=== PATIENT | female | born 1940 | race Hispanic/Latino ===

== ENCOUNTER 2017-10-02 07:16 | Emergency (ER) | payer MEDICARE ==
[2017-10-02 07:19] VITALS: BMI 22.4
[2017-10-02 08:00] LABS: BASO % 0.2 % (0.0-2.0); EOS % 0.1 % (0.0-4.0); HEMOGLOBIN 11.7 g/dL (11.0-16.0); LYMPH # 0.4 K/uL (1.0-4.3); LYMPH % 9.1 % (20.0-40.0); MEAN CELL VOLUME 78.5 fL (81.0-99.0); MEAN CORPUSCULAR HEMOGLOBIN 24.6 pg (27.0-31.0); MEAN CORPUSCULAR HGB CONC 31.3 g/dL (33.0-37.0); MEAN PLATELET VOLUME 9.8 fL (7.2-11.7); MONO % 0.5 % (0.0-10.0); NEUT # 4.3 K/uL (1.8-7.0); NEUT % 90.1 % (50.0-75.0); NRBC % 0.3 % (0.0-2.0); PLATELET COUNT 178 K/uL (130-400); RBC 4.75 Mil/uL (3.80-5.20); RED CELL DISTRIBUTION WIDTH 17.5 % (11.5-14.5); WHITE BLOOD COUNT 4.8 K/uL (4.8-10.8)
[2017-10-02 08:09] LABS: INR 1.7; PROTHROMBIN TIME 18.9 SECONDS (9.7-12.2)
[2017-10-02 08:18] LABS: SQUAMOUS EPITHIAL 1 /hpf (0-5); URINE AMORPHOUS SEDIMENT OCC /ul (<OCC); URINE BACTERIA FEW (<OCC); URINE BILIRUBIN NEGATIVE (NEGATIVE); URINE BLOOD NEGATIVE (NEGATIVE); URINE CLARITY Hazy (Clear); URINE COLOR Amber (YELLOW); URINE GLUCOSE (UA) NORMAL (Normal); URINE LEUKOCYTE ESTERASE NEG Leu/uL (Negative); URINE NITRATE NEGATIVE (NEGATIVE); URINE PROTEIN 2+ mg/dL (NEGATIVE); URINE UROBILINOGEN NORMAL mg/dL (0.2-1.0)
[2017-10-02 08:19] LABS: VENOUS BLOOD GAS PCO2 54 mmHg (40-60); VENOUS BLOOD GAS PO2 47 mm/Hg (30-55); VENOUS BLOOD PH 6.96 (7.32-7.43)
[2017-10-02] MEDS ORDERED: SODIUM CHLORIDE 0.9% IV ONE (08:22)
[2017-10-02] MEDS ORDERED: Piperacillin/Tazobact 3.375 gm 100 ML IVPB STA (08:27)
[2017-10-02 08:48] LABS: ALB/GLOB RATIO 0.9 (1.0-2.1); CK-MB 9.85 ng/mL (0.0-3.38); TROPONIN I 0.207 ng/mL (0.00-0.120)
[2017-10-02] MEDS ORDERED: Sodium Bicarbonate (8.4%) 50 Meq Syringe IVP ONE (08:57)
[2017-10-02 09:11] LABS: ARTERIAL BLOOD GAS HCO3 6.2 mmol/L (21-28); ARTERIAL BLOOD GAS O2 SAT 100.6 % (95-98); ARTERIAL BLOOD GAS PCO2 27 mm/Hg (35-45); ARTERIAL BLOOD GAS PH 6.98 (7.35-7.45); ARTERIAL BLOOD GAS PO2 409 mm/Hg (80-100); ARTERIAL BLOOD GAS TCO2 7.2 mmol/L (22-28)
[2017-10-02] MEDS ORDERED: Piperacillin/Tazobact 3.375 gm 100 ML IVPB ONE ×2 (09:18→11:21)
[2017-10-02] MEDS ORDERED: Sodium Bicarbonate (8.4%) 50 Meq Syringe ONE ×2 (09:18→09:50)
[2017-10-02] MEDS ORDERED: Sodium Chloride 0.9% 2,000 ML ONE (09:18)
[2017-10-02] MEDS ORDERED: Sodium Chloride 0.9% 1,000 ML IV ONE ×2 (09:29→09:31)
[2017-10-02 09:41] LABS: ANISOCYTOSIS SLIGHT; BANDS 51 % (0-2); HYPOCHROMIC SLIGHT; LYMPHOCYTE 8 % (20-40); MONOCYTE 5 % (0-10); NEUTROPHIL 35 % (50-75); PLATELET ESTIMATE NORMAL (NORMAL); POIKILOCYTOSIS SLIGHT; REACTIVE LYMPHOCYTES 1 % (0-0); TOTAL CELLS COUNTED 100
[2017-10-02 09:42] LABS: BURR CELLS SLIGHT; LARGE PLATELETS PRESENT; OVALOCYTES SLIGHT; TEARDROP CELLS SLIGHT
--- NOTE | 2017-10-02 10:34 | RAD ---
HISTORY: AMS COMPARISON: None available. TECHNIQUE: Chest, one view. FINDINGS: LUNGS: Dense right middle and lower lobe and less consolidated left lower lobe patchy consolidations worrisome for pneumonia. Interstitial prominence may reflect infection or edema. Biapical pleural thickening. Hyperinflation may be seen in the setting of COPD. PLEURA: No significant pleural effusion identified. No definite pneumothorax . CARDIOVASCULAR: Cardiomegaly. Dense atherosclerotic calcifications of the aorta. OSSEOUS STRUCTURES: Osseous demineralization. Degenerative changes. VISUALIZED UPPER ABDOMEN: Unremarkable. OTHER FINDINGS: None. IMPRESSION: Dense right middle and lower lobe and less consolidated left lower lobe patchy consolidations worrisome for pneumonia. Interstitial prominence may reflect infection or edema. Biapical pleural thickening. Hyperinflation may be seen in the setting of COPD. Recommend follow-up to resolution.
--- NOTE | 2017-10-02 10:53 | C.PDOC ---
History Of Present Illness Pt was found lethargic in her bedroom. The room's condition is very poor according to EMS. EMS found pt to be hypoglycemic (FS 50) and was given D50 en route without response. Time Seen by Provider: 10/02/17 07:22 Chief Complaint (Nursing): Altered Mental Status History Per: EMS History/Exam Limitations: Clinical Condition Onset/Duration Of Symptoms: Unknown Onset Of Symptoms: Cannot Confirm Onset Current Symptoms Are (Timing): Still Present Usual Baseline: Unknown Exacerbating Factor(s): Unknown Severity: Severe Additional History Per: Prior Records Associated Symptoms: Weakness, Other (Lethargy) Past Medical History Reviewed: Historical Data, Nursing Documentation, Vital Signs Vital Signs: Last Vital Signs Temp 95.5 F L 10/02/17 10:04 Pulse 133 H 10/02/17 10:04 Resp 26 H 10/02/17 10:04 BP 146/80 10/02/17 10:04 Pulse Ox 100 10/02/17 10:04 - Medical History PMH: Asthma, HTN, Osteoporosis Family History: States: Unknown Family Hx - Social History Hx Alcohol Use: No (unknown) Hx Substance Use: No - Immunization History Hx Tetanus Toxoid Vaccination: No (unknown) Hx Influenza Vaccination: No (unknown) Hx Pneumococcal Vaccination: No (uknown) Review Of Systems Review Of Systems: ROS cannot be obtained secondary to pt's inabilty to answer questions. Physical Exam - Physical Exam Appears: Toxic, In Acute Distress, Other (Lethargic) Skin: Dry, Mottled Head: Atraumatic Oral Mucosa: Dry Neck: Normal ROM, Supple Cardiovascular: Rhythm Regular (tachycardia) Respiratory: Rhonchi, Other (tachypnea) Gastrointestinal/Abdominal: Soft, No Tenderness, No Distention Extremity: Normal ROM, No Pedal Edema Neurological/Psych: No Response To Commands Pain Response: Withdraws With Pain ED Course And Treatment - Laboratory Results Result Diagrams: 10/02/17 07:52 10/02/17 07:52 Lab Interpretation: Abnormal Interpretation Of Abnormal: Acidosis. Acute renal failure. Bandemia. ECG: Interpreted By Me, Viewed By Me ECG Rhythm: Nonspecific Changes Interpretation Of ECG: Indeterminate rhythm due to many artifacts. Tachycardia. Rate From EC O2 Sat by Pulse Oximetry: 100 (on BiPAP) - Radiology CXR: Viewed By Me, Read By Radiologist CXR Interpretation: Yes: Infiltrates (RLL pneumonia) Progress Note: Pt was placed on BiPAP and Bear hugger upon arrival with modest improvement. Progress - Interventions Interventions:: Observation, Intravenous fluid, Oxygen - Medications Administered Intravenous: Other (Abx., Sodium Bicarb.) - Data Reviewed Data Reviewed: Lab, Diagnostic imaging, EKG, Old records - Patient Status Patient status: Partially improved, Critical - Critical Care Citical Care: Excluding Proc Time Critical Care Time: 75 minutes - Continuity of Care Discussed patient case with:: ED Nurse, On-call PMD-pt unassigned Discussed pt. case with crm consultant/specialty: Pulmonary/Crit. Care - Patient Plan Patient Plan: Admission, ICU Disposition Discussed With : Chris Gonsales Comment: He accepted pt on his service. Doctor Will See Patient In The: Hospital - Disposition Disposition: HOSPITALIZED Disposition Time: 10:54 Condition: CRITICAL - Clinical Impression Clinical Impression: Lactic acidosis, Hypothermia, Dehydration, Pneumonia, Sepsis, ARF (acute renal failure)
--- NOTE | 2017-10-02 11:29 | CP.PCM.CON ---
<Alex Wright - Last Filed: 10/02/17 11:29> Past Patient History - Past Social History Smoking Status: Unknown If Ever Smoked - CARDIAC Hx Hypertension: Yes - PULMONARY Hx Asthma: Yes - MUSCULOSKELETAL/RHEUMATOLOGICAL Hx Osteoporosis: Yes - PSYCHIATRIC Hx Substance Use: No - SURGICAL HISTORY Hx Surgeries: (unobtainable) Meds Allergies/Adverse Reactions: Allergies Allergy/AdvReac Type Severity Reaction Status Date / Time Unobtainable Allergy Verified 10/02/17 07:17 - Medications Medications: Current Medications Albuterol/Ipratropium (Duoneb 3 Mg/0.5 Mg (3 Ml) Ud) 3 ml INH RQ6 RIK Sodium Chloride (Sodium Chloride 0.9%) 1,000 mls @ 75 mls/hr IV .[id number] RIK Piperacillin Sod/Tazobactam Sod (Zosyn 3.375 In Ns 100ml) 100 mls @ 200 mls/hr IVPB ONCE ONE Stop: 10/02/17 11:50 Vancomycin/Sodium Chloride (Vancomycin 1 Gm/Ns 200 Ml) 1 gm in 200 mls @ 133 mls/hr IVPB DAILY RIK Stop: 10/08/17 10:01 Sodium Bicarbonate 75 meq/ (Sodium Chloride) 1,075 mls @ 75 mls/hr IV .[id number] RIK Results - Vital Signs Recent Vital Signs: Last Vital Signs Temp 95.5 F L 10/02/17 10:04 Pulse 133 H 10/02/17 10:04 Resp 26 H 10/02/17 10:04 BP 146/80 10/02/17 10:04 Pulse Ox 100 10/02/17 11:00 - Labs Result Diagrams: 10/02/17 07:52 10/02/17 07:52 Labs: Laboratory Results - last 24 hr 10/02/17 10/02/17 10/02/17 07:30 07:52 07:52 WBC 4.8 RBC 4.75 Hgb 11.7 Hct 37.3 MCV 78.5 L MCH 24.6 L MCHC 31.3 L RDW 17.5 H Plt Count 178 MPV 9.8 Neut % (Auto) 90.1 H Lymph % (Auto) 9.1 L Mcdonough % (Auto) 0.5 Eos % (Auto) 0.1 Baso % (Auto) 0.2 Neut # (Auto) 4.3 Lymph # (Auto) 0.4 L Mcdonough # (Auto) 0.0 Eos # (Auto) 0.0 Baso # (Auto) 0.0 Neutrophils % (Manual) 35 L Band Neutrophils % 51 H* Lymphocytes % (Manual) 8 L Reactive Lymphs % 1 H Monocytes % (Manual) 5 Platelet Estimate Normal Large Platelets Present Hypochromasia (manual) Slight Poikilocytosis (manual Slight Anisocytosis (manual) Slight Tear Drop Cells Slight Ovalocytes Slight [place] Cells Slight PT INR APTT Puncture Site pCO2 pO2 HCO3 ABG pH ABG Total CO2 ABG O2 Saturation ABG Base Excess Marshall Test ABG Potassium VBG pH VBG pCO2 VBG HCO3 VBG Total CO2 VBG O2 Sat (Calc) VBG Base Excess VBG Potassium A-a O2 Difference Respiratory Index Glucose Lactate FiO2 Inspiratory BiPAP Expiratory BiPAP Crit Value Called To Crit Value Called By Crit Value Read Back Blood Gas Notified Time Sodium 130 L Potassium 5.2 Chloride 95 L Carbon Dioxide 9 L* Anion Gap 30 H BUN 62 H Creatinine 2.9 H Est GFR ( Amer) 19 Est GFR (Non-Af Amer) 16 POC Glucose (mg/dL) 138 H Random Glucose 168 H Calcium 9.0 Total Bilirubin 1.7 H AST 1030 H ALT 572 H Alkaline Phosphatase 45 Total Creatine Kinase 542 H CK-MB (Mass) 9.85 H Troponin I 0.2070 H* NT-Pro-B Natriuret Pep 23281 H Total Protein 6.5 Albumin 3.0 L Globulin 3.5 Albumin/Globulin Ratio 0.9 L Arterial Blood Potassium Venous Blood Potassium Urine Color Urine Clarity Urine pH Ur Specific [place] Urine Protein Urine Glucose (UA) Urine Ketones Urine Blood Urine Nitrate Urine Bilirubin Urine Urobilinogen Ur Leukocyte Esterase Urine WBC (Auto) Urine RBC (Auto) Ur Squamous Epith Cells Amorphous Sediment Urine Bacteria Hyaline Casts 10/02/17 10/02/17 10/02/17 07:52 07:52 08:10 WBC RBC Hgb Hct MCV MCH MCHC RDW Plt Count MPV Neut % (Auto) Lymph % (Auto) Mcdonough % (Auto) Eos % (Auto) Baso % (Auto) Neut # (Auto) Lymph # (Auto) Mcdonough # (Auto) Eos # (Auto) Baso # (Auto) Neutrophils % (Manual) Band Neutrophils % Lymphocytes % (Manual) Reactive Lymphs % Monocytes % (Manual) Platelet Estimate Large Platelets Hypochromasia (manual) Poikilocytosis (manual Anisocytosis (manual) Tear Drop Cells Ovalocytes [place] Cells PT 18.9 H INR 1.7 APTT 41 H Puncture Site pCO2 pO2 47 HCO3 ABG pH ABG Total CO2 ABG O2 Saturation ABG Base Excess Marshall Test ABG Potassium VBG pH 6.96 L* VBG pCO2 54 VBG HCO3 8.1 VBG Total CO2 13.8 L VBG O2 Sat (Calc) 66.0 H VBG Base Excess -20.0 L VBG Potassium 4.9 A-a O2 Difference Respiratory Index Glucose 168 H Lactate 13.6 H* FiO2 Inspiratory BiPAP Expiratory BiPAP Crit Value Called To Dr villarreal Crit Value Called By Tanvi bowman [facility] Crit Value Read Back Y Blood Gas Notified Time 820 Sodium 132.0 Potassium Chloride 98.0 Carbon Dioxide Anion Gap BUN Creatinine Est GFR ( Amer) Est GFR (Non-Af Amer) POC Glucose (mg/dL) Random Glucose Calcium Total Bilirubin AST ALT Alkaline Phosphatase Total Creatine Kinase CK-MB (Mass) Troponin I NT-Pro-B Natriuret Pep Total Protein Albumin Globulin Albumin/Globulin Ratio Arterial Blood Potassium Venous Blood Potassium 4.9 Urine Color [place] Urine Clarity Hazy Urine pH 5.0 Ur Specific [place] 1.023 Urine Protein 2+ H Urine Glucose (UA) Normal Urine Ketones Negative Urine Blood Negative Urine Nitrate Negative Urine Bilirubin Negative Urine Urobilinogen Normal Ur Leukocyte Esterase Neg Urine WBC (Auto) 3 Urine RBC (Auto) 2 Ur Squamous Epith Cells 1 Amorphous Sediment Occ H Urine Bacteria Few H Hyaline Casts 6-10 H 10/02/17 09:00 WBC RBC Hgb Hct MCV MCH MCHC RDW Plt Count MPV Neut % (Auto) Lymph % (Auto) Mcdonough % (Auto) Eos % (Auto) Baso % (Auto) Neut # (Auto) Lymph # (Auto) Mcdonough # (Auto) Eos # (Auto) Baso # (Auto) Neutrophils % (Manual) Band Neutrophils % Lymphocytes % (Manual) Reactive Lymphs % Monocytes % (Manual) Platelet Estimate Large Platelets Hypochromasia (manual) Poikilocytosis (manual Anisocytosis (manual) Tear Drop Cells Ovalocytes [place] Cells PT INR APTT Puncture Site Lf pCO2 27 L pO2 409 H HCO3 6.2 L* ABG pH 6.98 L* ABG Total CO2 7.2 L ABG O2 Saturation 100.6 H ABG Base Excess -24.1 L Marshall Test Na ABG Potassium 4.5 VBG pH VBG pCO2 VBG HCO3 VBG Total CO2 VBG O2 Sat (Calc) VBG Base Excess VBG Potassium A-a O2 Difference 270.0 Respiratory Index 0.7 Glucose 67 Lactate 12.9 H* FiO2 100.0 Inspiratory BiPAP 12 Expiratory BiPAP 6 Crit Value Called To Dr mccollum Crit Value Called By Jj bowman Crit Value Read Back Y Blood Gas Notified Time 910 Sodium 136.0 Potassium Chloride 108.0 H Carbon Dioxide Anion Gap BUN Creatinine Est GFR ( Amer) Est GFR (Non-Af Amer) POC Glucose (mg/dL) Random Glucose Calcium Total Bilirubin AST ALT Alkaline Phosphatase Total Creatine Kinase CK-MB (Mass) Troponin I NT-Pro-B Natriuret Pep Total Protein Albumin Globulin Albumin/Globulin Ratio Arterial Blood Potassium 4.5 Venous Blood Potassium Urine Color Urine Clarity Urine pH Ur Specific [place] Urine Protein Urine Glucose (UA) Urine Ketones Urine Blood Urine Nitrate Urine Bilirubin Urine Urobilinogen Ur Leukocyte Esterase Urine WBC (Auto) Urine RBC (Auto) Ur Squamous Epith Cells Amorphous Sediment Urine Bacteria Hyaline Casts <Gabino Pratt - Last Filed: 10/02/17 13:02> History of Present Illness - History of Present Illness History of Present Illness: 76 y/o female with pmx of smoking presents to [facility] with AMS. per EMS, house/room was disheveled and a cat was found . Patient's sister at bedside who lives with patient was not able to provide any history. Patient's neice at bedside also not able to provide any history. Limited history. Patient seen at bedside on bi-pap with good ventilation, Utox not available. Patient's telemetry lead not attached, not on pulse oximetry. -BP(recorded) likely not accurate Meds - Medications Medications: Current Medications Albuterol/Ipratropium (Duoneb 3 Mg/0.5 Mg (3 Ml) Ud) 3 ml INH RQ6 RIK Sodium Chloride (Sodium Chloride 0.9%) 1,000 mls @ 75 mls/hr IV .[id number] RIK Vancomycin/Sodium Chloride (Vancomycin 1 Gm/Ns 200 Ml) 1 gm in 200 mls @ 133 mls/hr IVPB DAILY RIK Stop: 10/08/17 10:01 Sodium Bicarbonate 75 meq/ (Sodium Chloride) 1,000 mls @ 75 mls/hr IV .[id number] RIK Results - Vital Signs Recent Vital Signs: Last Vital Signs Temp 96 F L 10/02/17 11:30 Pulse 50 L 10/02/17 12:00 Resp 0 L 10/02/17 12:00 BP 0/0 L 10/02/17 12:00 Pulse Ox 0 L 10/02/17 12:00 - Labs Result Diagrams: 10/02/17 07:52 10/02/17 07:52 Labs: Laboratory Results - last 24 hr 10/02/17 10/02/17 10/02/17 07:30 07:52 07:52 WBC 4.8 RBC 4.75 Hgb 11.7 Hct 37.3 MCV 78.5 L MCH 24.6 L MCHC 31.3 L RDW 17.5 H Plt Count 178 MPV 9.8 Neut % (Auto) 90.1 H Lymph % (Auto) 9.1 L Mcdonough % (Auto) 0.5 Eos % (Auto) 0.1 Baso % (Auto) 0.2 Neut # (Auto) 4.3 Lymph # (Auto) 0.4 L Mcdonough # (Auto) 0.0 Eos # (Auto) 0.0 Baso # (Auto) 0.0 Neutrophils % (Manual) 35 L Band Neutrophils % 51 H* Lymphocytes % (Manual) 8 L Reactive Lymphs % 1 H Monocytes % (Manual) 5 Platelet Estimate Normal Large Platelets Present Hypochromasia (manual) Slight Poikilocytosis (manual Slight Anisocytosis (manual) Slight Tear Drop Cells Slight Ovalocytes Slight [place] Cells Slight PT INR APTT Puncture Site pCO2 pO2 HCO3 ABG pH ABG Total CO2 ABG O2 Saturation ABG Base Excess Marshall Test ABG Potassium VBG pH VBG pCO2 VBG HCO3 VBG Total CO2 VBG O2 Sat (Calc) VBG Base Excess VBG Potassium A-a O2 Difference Respiratory Index Glucose Lactate FiO2 Inspiratory BiPAP Expiratory BiPAP Crit Value Called To Crit Value Called By Crit Value Read Back Blood Gas Notified Time Sodium 130 L Potassium 5.2 Chloride 95 L Carbon Dioxide 9 L* Anion Gap 30 H BUN 62 H Creatinine 2.9 H Est GFR ( Amer) 19 Est GFR (Non-Af Amer) 16 POC Glucose (mg/dL) 138 H Random Glucose 168 H Calcium 9.0 Total Bilirubin 1.7 H AST 1030 H ALT 572 H Alkaline Phosphatase 45 Total Creatine Kinase 542 H CK-MB (Mass) 9.85 H Troponin I 0.2070 H* NT-Pro-B Natriuret Pep 86043 H Total Protein 6.5 Albumin 3.0 L Globulin 3.5 Albumin/Globulin Ratio 0.9 L Arterial Blood Potassium Venous Blood Potassium Urine Color Urine Clarity Urine pH Ur Specific [place] Urine Protein Urine Glucose (UA) Urine Ketones Urine Blood Urine Nitrate Urine Bilirubin Urine Urobilinogen Ur Leukocyte Esterase Urine WBC (Auto) Urine RBC (Auto) Ur Squamous Epith Cells Amorphous Sediment Urine Bacteria Hyaline Casts 10/02/17 10/02/17 10/02/17 07:52 07:52 08:10 WBC RBC Hgb Hct MCV MCH MCHC RDW Plt Count MPV Neut % (Auto) Lymph % (Auto) [place]cd[place] % (Auto) Eos % (Auto) Baso % (Auto) Neut # (Auto) Lymph # (Auto) Mcd[place]ough # (Auto) Eos # (Auto) Baso # (Auto) Neutrophils % (Manual) Band Neutrophils % Lymphocytes % (Manual) Reactive Lymphs % Monocytes % (Manual) Platelet Estimate Large Platelets Hypochromasia (manual) Poikilocytosis (manual Anisocytosis (manual) Tear Drop Cells Ovalocytes [place] Cells PT 18.9 H INR 1.7 APTT 41 H Puncture Site pCO2 pO2 47 HCO3 ABG pH ABG Total CO2 ABG O2 Saturation ABG Base Excess Marshall Test ABG Potassium VBG pH 6.96 L* VBG pCO2 54 VBG HCO3 8.1 VBG Total CO2 13.8 L VBG O2 Sat (Calc) 66.0 H VBG Base Excess -20.0 L VBG Potassium 4.9 A-a O2 Difference Respiratory Index Glucose 168 H Lactate 13.6 H* FiO2 Inspiratory BiPAP Expiratory BiPAP Crit Value Called To Dr villarreal Crit Value Called By Tanvi bowman monitoring tech Crit Value Read Back Y Blood Gas Notified Time 820 Sodium 132.0 Potassium Chloride 98.0 Carbon Dioxide Anion Gap BUN Creatinine Est GFR ( Amer) Est GFR (Non-Af Amer) POC Glucose (mg/dL) Random Glucose Calcium Total Bilirubin AST ALT Alkaline Phosphatase Total Creatine Kinase CK-MB (Mass) Troponin I NT-Pro-B Natriuret Pep Total Protein Albumin Globulin Albumin/Globulin Ratio Arterial Blood Potassium Venous Blood Potassium 4.9 Urine Color [place] Urine Clarity Hazy Urine pH 5.0 Ur Specific [place] 1.023 Urine Protein 2+ H Urine Glucose (UA) Normal Urine Ketones Negative Urine Blood Negative Urine Nitrate Negative Urine Bilirubin Negative Urine Urobilinogen Normal Ur Leukocyte Esterase Neg Urine WBC (Auto) 3 Urine RBC (Auto) 2 Ur Squamous Epith Cells 1 Amorphous Sediment Occ H Urine Bacteria Few H Hyaline Casts 6-10 H 10/02/17 09:00 WBC RBC Hgb Hct MCV MCH MCHC RDW Plt Count MPV Neut % (Auto) Lymph % (Auto) [place] % (Auto) Eos % (Auto) Baso % (Auto) Neut # (Auto) Lymph # (Auto) Mcd[place]ough # (Auto) Eos # (Auto) Baso # (Auto) Neutrophils % (Manual) Band Neutrophils % Lymphocytes % (Manual) Reactive Lymphs % Monocytes % (Manual) Platelet Estimate Large Platelets Hypochromasia (manual) Poikilocytosis (manual Anisocytosis (manual) Tear Drop Cells Ovalocytes [place] Cells PT INR APTT Puncture Site Lf pCO2 27 L pO2 409 H HCO3 6.2 L* ABG pH 6.98 L* ABG Total CO2 7.2 L ABG O2 Saturation 100.6 H ABG Base Excess -24.1 L Marshall Test Na ABG Potassium 4.5 VBG pH VBG pCO2 VBG HCO3 VBG Total CO2 VBG O2 Sat (Calc) VBG Base Excess VBG Potassium A-a O2 Difference 270.0 Respiratory Index 0.7 Glucose 67 Lactate 12.9 H* FiO2 100.0 Inspiratory BiPAP 12 Expiratory BiPAP 6 Crit Value Called To Dr mccollum Crit Value Called By Jj bowman Crit Value Read Back Y Blood Gas Notified Time 910 Sodium 136.0 Potassium Chloride 108.0 H Carbon Dioxide Anion Gap BUN Creatinine Est GFR ( Amer) Est GFR (Non-Af Amer) POC Glucose (mg/dL) Random Glucose Calcium Total Bilirubin AST ALT Alkaline Phosphatase Total Creatine Kinase CK-MB (Mass) Troponin I NT-Pro-B Natriuret Pep Total Protein Albumin Globulin Albumin/Globulin Ratio Arterial Blood Potassium 4.5 Venous Blood Potassium Urine Color Urine Clarity Urine pH Ur Specific [place] Urine Protein Urine Glucose (UA) Urine Ketones Urine Blood Urine Nitrate Urine Bilirubin Urine Urobilinogen Ur Leukocyte Esterase Urine WBC (Auto) Urine RBC (Auto) Ur Squamous Epith Cells Amorphous Sediment Urine Bacteria Hyaline Casts Assessment & Plan - Assessment and Plan (Free Text) Assessment: -AMS: obtain utox, check blood glucose, obtain CT head r/oICH, cat found ? patient ingested a prescribed drug (benzo/opiod) -Respiratory acidosis with metabolic acidosis: ER placed patient on bi-pap with improvement in pCO2, pushed 150 meq of bicarb to keep pH >7.2, repeat ABG, d/w family regarding any advance directive, repeat ABG, if pCo2 increasing, will intubate -Sepsis: CXR reveals RLL infiltrate, start broad spectrum abx, vanco/zosyn/ azithro, serial lactic -r/o NSTEMI: EKG not available, (+)trop, obtain echo, repeat Trops -BGM q4hrs, ISS/aspart -DVT ppx SCDS (obtain CT head if ICH neg then start SQ heparin -PUD ppx pepcid Patient has multi organ dysfunction with severe metabolic acidosis (2nd renal failure), severe COPD (with Co2 retention improving with bi-pap), heart failure (trop(+) at risk of CAD/NSTEMI), long history of smoking, which increases her mortality to more than 80%. -Patient will benefit from ICU monitoring with telemetry, SPO2 and non-invasive blood pressure cuff. -Repeat ABG, if not improvement, will intubate (if family agrees). d/w ER physician cc time 55 minutes - Date & Time Date: 10/02/17 Time: 13:02
[2017-10-02] MEDS ORDERED: Sodium Chloride 0.9% 1,000 ML IV SCH (11:30)
[2017-10-02 11:59] VITALS: BP 0/0; RESP 0; O2SAT 0
--- NOTE | 2017-10-02 11:59 | PCM.ANES ---
Anesthesia Emergent Intubation - Diagnosis Working Diagnosis:: respiratory fialiure in cat scan - Intubation Attempts Previous Number of Intubation Attempts:: 1 (criocoid) By:: Gogo Machuca [employer] SUR[employer]Y TAKER - Pre-Intubation Vital Signs Blood Pressure: 0/0 (no bp on arrival) Heart Rate: 50 (no pulse on arrival) Respiratory Rate: 0 (apneic) O2 Sat: 0 (none) FIO2: 100 Oxygen Delivery Method: Mask Level Of Consciousness: Comatose/Unresponsive - Airway Management Inhalation: No Rapid Sequence: Yes Cricoid Pressure: Yes Possible Aspiration: No - Intubation Devices Dieter Forcepts Used: No [place] Scope Used: No Fiber Optic Scope: No - Placement Confirmation Breath Sounds Present & Equal Bilaterally: Yes Gurgling Sounds Not Audible at Epigastrum: No Positive EtCO2: Yes Portable CXR: Yes Recommendations: Ventilator - Post-Intubation Vital Signs Blood Pressure: 55/0 Heart Rate: 120 Respiratory Rate: 20 O2 Sat: 100
[2017-10-02] MEDS ORDERED: Piperacill/Tazo 3.375gm in Dex 3.375 GM/50 ML BAG IVPB ONE (12:00)
[2017-10-02 12:40] VITALS: TEMP 96
[2017-10-02 12:53] VITALS: PULSE 0
[2017-10-02] MEDS ORDERED: Sodium Bicarbonate 8.4% 75 MEQ in Sodium Chloride 0.45% 925 ML IV SCH (13:00)
[2017-10-02] MEDS ORDERED: Albuterol-Ipratrop 3 mg / 0.5 (3 ml) UD INH SCH (14:00)
--- NOTE | 2017-10-02 14:25 | CP.PCM.HP ---
History of Present Illness - History of Present Illness History of Present Illness: PT WAS FOUND ON THE FLOOR WITH DISORIENTATION COVERED WITH HUMAN WASTE PT HAD GLOCOSE OF 51 PT WAS IN RENAL FAILURE AND SEVERELY ACIDOTIC BEFORE ANY FURTHER TESTS COULD BE DONE , PT CODED IN CT SCAN AND WAS UNABLE TO REVIVE PT WAS PRONOUNCED BY MIGUEL PARNELL PT PER CHART HAS H/O COPD/OSTEOPOROSIS Past Patient History - Past Social History Smoking Status: Unknown If Ever Smoked - CARDIAC Hx Hypertension: Yes - PULMONARY Hx Asthma: Yes - MUSCULOSKELETAL/RHEUMATOLOGICAL Hx Osteoporosis: Yes - PSYCHIATRIC Hx Substance Use: No - SURGICAL HISTORY Hx Surgeries: (unobtainable) Meds Allergies/Adverse Reactions: Allergies Allergy/AdvReac Type Severity Reaction Status Date / Time Unobtainable Allergy Verified 10/02/17 07:17 Results - Vital Signs Recent Vital Signs: Last Vital Signs Temp 96 F L 10/02/17 11:30 Pulse 0 L 10/02/17 12:46 Resp 0 L 10/02/17 12:00 BP 0/0 L 10/02/17 12:00 Pulse Ox 0 L 10/02/17 12:00 - Labs Result Diagrams: 10/02/17 07:52 10/02/17 07:52 Labs: Laboratory Results - last 24 hr 10/02/17 10/02/17 10/02/17 07:30 07:52 07:52 WBC 4.8 RBC 4.75 Hgb 11.7 Hct 37.3 MCV 78.5 L MCH 24.6 L MCHC 31.3 L RDW 17.5 H Plt Count 178 MPV 9.8 Neut % (Auto) 90.1 H Lymph % (Auto) 9.1 L [place] % (Auto) 0.5 Eos % (Auto) 0.1 Baso % (Auto) 0.2 Neut # (Auto) 4.3 Lymph # (Auto) 0.4 L [place] # (Auto) 0.0 Eos # (Auto) 0.0 Baso # (Auto) 0.0 Neutrophils % (Manual) 35 L Band Neutrophils % 51 H* Lymphocytes % (Manual) 8 L Reactive Lymphs % 1 H Monocytes % (Manual) 5 Platelet Estimate Normal Large Platelets Present Hypochromasia (manual) Slight Poikilocytosis (manual Slight Anisocytosis (manual) Slight Tear Drop Cells Slight Ovalocytes Slight [place] Cells Slight PT INR APTT Puncture Site pCO2 pO2 HCO3 ABG pH ABG Total CO2 ABG O2 Saturation ABG Base Excess [place] Test ABG Potassium VBG pH VBG pCO2 VBG HCO3 VBG Total CO2 VBG O2 Sat (Calc) VBG Base Excess VBG Potassium A-a O2 Difference Respiratory Index Glucose Lactate FiO2 Inspiratory BiPAP Expiratory BiPAP Crit Value Called To Crit Value Called By Crit Value Read Back Blood Gas Notified Time Sodium 130 L Potassium 5.2 Chloride 95 L Carbon Dioxide 9 L* Anion Gap 30 H BUN 62 H Creatinine 2.9 H Est GFR ( Amer) 19 Est GFR (Non-Af Amer) 16 POC Glucose (mg/dL) 138 H Random Glucose 168 H Calcium 9.0 Total Bilirubin 1.7 H AST 1030 H ALT 572 H Alkaline Phosphatase 45 Total Creatine Kinase 542 H CK-MB (Mass) 9.85 H Troponin I 0.2070 H* NT-Pro-B Natriuret Pep 11925 H Total Protein 6.5 Albumin 3.0 L Globulin 3.5 Albumin/Globulin Ratio 0.9 L Arterial Blood Potassium Venous Blood Potassium Urine Color Urine Clarity Urine pH Ur Specific [place] Urine Protein Urine Glucose (UA) Urine Ketones Urine Blood Urine Nitrate Urine Bilirubin Urine Urobilinogen Ur Leukocyte Esterase Urine WBC (Auto) Urine RBC (Auto) Ur Squamous Epith Cells Amorphous Sediment Urine Bacteria Hyaline Casts 10/02/17 10/02/17 10/02/17 07:52 07:52 08:10 WBC RBC Hgb Hct MCV MCH MCHC RDW Plt Count MPV Neut % (Auto) Lymph % (Auto) [place] % (Auto) Eos % (Auto) Baso % (Auto) Neut # (Auto) Lymph # (Auto) [place] # (Auto) Eos # (Auto) Baso # (Auto) Neutrophils % (Manual) Band Neutrophils % Lymphocytes % (Manual) Reactive Lymphs % Monocytes % (Manual) Platelet Estimate Large Platelets Hypochromasia (manual) Poikilocytosis (manual Anisocytosis (manual) Tear Drop Cells Ovalocytes [place] Cells PT 18.9 H INR 1.7 APTT 41 H Puncture Site pCO2 pO2 47 HCO3 ABG pH ABG Total CO2 ABG O2 Saturation ABG Base Excess [place] Test ABG Potassium VBG pH 6.96 L* VBG pCO2 54 VBG HCO3 8.1 VBG Total CO2 13.8 L VBG O2 Sat (Calc) 66.0 H VBG Base Excess -20.0 L VBG Potassium 4.9 A-a O2 Difference Respiratory Index Glucose 168 H Lactate 13.6 H* FiO2 Inspiratory BiPAP Expiratory BiPAP Crit Value Called To Dr villarreal Crit Value Called By Tanvi bowman [facility] Crit Value Read Back Y Blood Gas Notified Time 820 Sodium 132.0 Potassium Chloride 98.0 Carbon Dioxide Anion Gap BUN Creatinine Est GFR ( Amer) Est GFR (Non-Af Amer) POC Glucose (mg/dL) Random Glucose Calcium Total Bilirubin AST ALT Alkaline Phosphatase Total Creatine Kinase CK-MB (Mass) Troponin I NT-Pro-B Natriuret Pep Total Protein Albumin Globulin Albumin/Globulin Ratio Arterial Blood Potassium Venous Blood Potassium 4.9 Urine Color [place] Urine Clarity Hazy Urine pH 5.0 Ur Specific [place] 1.023 Urine Protein 2+ H Urine Glucose (UA) Normal Urine Ketones Negative Urine Blood Negative Urine Nitrate Negative Urine Bilirubin Negative Urine Urobilinogen Normal Ur Leukocyte Esterase Neg Urine WBC (Auto) 3 Urine RBC (Auto) 2 Ur Squamous Epith Cells 1 Amorphous Sediment Occ H Urine Bacteria Few H Hyaline Casts 6-10 H 18 09:00 WBC RBC Hgb Hct MCV MCH MCHC RDW Plt Count MPV Neut % (Auto) Lymph % (Auto) [place] % (Auto) Eos % (Auto) Baso % (Auto) Neut # (Auto) Lymph # (Auto) [place] # (Auto) Eos # (Auto) Baso # (Auto) Neutrophils % (Manual) Band Neutrophils % Lymphocytes % (Manual) Reactive Lymphs % Monocytes % (Manual) Platelet Estimate Large Platelets Hypochromasia (manual) Poikilocytosis (manual Anisocytosis (manual) Tear Drop Cells Ovalocytes [place] Cells PT INR APTT Puncture Site Lf pCO2 27 L pO2 409 H HCO3 6.2 L* ABG pH 6.98 L* ABG Total CO2 7.2 L ABG O2 Saturation 100.6 H ABG Base Excess -24.1 L Marshall Test Na ABG Potassium 4.5 VBG pH VBG pCO2 VBG HCO3 VBG Total CO2 VBG O2 Sat (Calc) VBG Base Excess VBG Potassium A-a O2 Difference 270.0 Respiratory Index 0.7 Glucose 67 Lactate 12.9 H* FiO2 100.0 Inspiratory BiPAP 12 Expiratory BiPAP 6 Crit Value Called To Dr mccollum Crit Value Called By Jj bowman Crit Value Read Back Y Blood Gas Notified Time 910 Sodium 136.0 Potassium Chloride 108.0 H Carbon Dioxide Anion Gap BUN Creatinine Est GFR ( Amer) Est GFR (Non-Af Amer) POC Glucose (mg/dL) Random Glucose Calcium Total Bilirubin AST ALT Alkaline Phosphatase Total Creatine Kinase CK-MB (Mass) Troponin I NT-Pro-B Natriuret Pep Total Protein Albumin Globulin Albumin/Globulin Ratio Arterial Blood Potassium 4.5 Venous Blood Potassium Urine Color Urine Clarity Urine pH Ur Specific [place] Urine Protein Urine Glucose (UA) Urine Ketones Urine Blood Urine Nitrate Urine Bilirubin Urine Urobilinogen Ur Leukocyte Esterase Urine WBC (Auto) Urine RBC (Auto) Ur Squamous Epith Cells Amorphous Sediment Urine Bacteria Hyaline Casts
--- NOTE | 2017-10-02 14:26 | CP.PCM.DIS ---
Provider - Provider Date of Admission: 10/02/17 11:01 Attending physician: Chris Gonsales MD Time Spent in preparation of Discharge (in minutes): 20 Hospital Course - Lab Results Lab Results: Most Recent Lab Values WBC 4.8 K/uL (4.8-10.8) 10/02/17 07:52 RBC 4.75 Mil/uL (3.80-5.20) 10/02/17 07:52 Hgb 11.7 g/dL (11.0-16.0) 10/02/17 07:52 Hct 37.3 % (34.0-47.0) 10/02/17 07:52 MCV 78.5 fL (81.0-99.0) L 10/02/17 07:52 MCH 24.6 pg (27.0-31.0) L 10/02/17 07:52 MCHC 31.3 g/dL (33.0-37.0) L 10/02/17 07:52 RDW 17.5 % (11.5-14.5) H 10/02/17 07:52 Plt Count 178 K/uL (130-400) 10/02/17 07:52 MPV 9.8 fL (7.2-11.7) 10/02/17 07:52 Neut % (Auto) 90.1 % (50.0-75.0) H 10/02/17 07:52 Lymph % (Auto) 9.1 % (20.0-40.0) L 10/02/17 07:52 [place] % (Auto) 0.5 % (0.0-10.0) 10/02/17 07:52 Eos % (Auto) 0.1 % (0.0-4.0) 10/02/17 07:52 Baso % (Auto) 0.2 % (0.0-2.0) 10/02/17 07:52 Neut # (Auto) 4.3 K/uL (1.8-7.0) 10/02/17 07:52 Lymph # (Auto) 0.4 K/uL (1.0-4.3) L 10/02/17 07:52 [place] # (Auto) 0.0 K/uL (0.0-0.8) 10/02/17 07:52 Eos # (Auto) 0.0 K/uL (0.0-0.7) 10/02/17 07:52 Baso # (Auto) 0.0 K/uL (0.0-0.2) 10/02/17 07:52 Neutrophils % (Manual) 35 % (50-75) L 10/02/17 07:52 Band Neutrophils % 51 % (0-2) H* 10/02/17 07:52 Lymphocytes % (Manual) 8 % (20-40) L 10/02/17 07:52 Reactive Lymphs % 1 % (0-0) H 10/02/17 07:52 Monocytes % (Manual) 5 % (0-10) 10/02/17 07:52 Platelet Estimate Normal (NORMAL) 10/02/17 07:52 Large Platelets Present 10/02/17 07:52 Hypochromasia (manual) Slight 10/02/17 07:52 Poikilocytosis (manual Slight 10/02/17 07:52 Anisocytosis (manual) Slight 10/02/17 07:52 Tear Drop Cells Slight 10/02/17 07:52 Ovalocytes Slight 10/02/17 07:52 [place] Cells Slight 10/02/17 07:52 PT 18.9 SECONDS (9.7-12.2) H 10/02/17 07:52 INR 1.7 10/02/17 07:52 APTT 41 SECONDS (21-34) H 10/02/17 07:52 Puncture Site Lf 10/02/17 09:00 pCO2 27 mm/Hg (35-45) L 10/02/17 09:00 pO2 409 mm/Hg (80-100) H 10/02/17 09:00 HCO3 6.2 mmol/L (21-28) L* 10/02/17 09:00 ABG pH 6.98 (7.35-7.45) L* 10/02/17 09:00 ABG Total CO2 7.2 mmol/L (22-28) L 10/02/17 09:00 ABG O2 Saturation 100.6 % (95-98) H 10/02/17 09:00 ABG Base Excess -24.1 mmol/L (-2.0-3.0) L 10/02/17 09:00 Marshall Test Na 10/02/17 09:00 ABG Potassium 4.5 mmol/L (3.6-5.2) 10/02/17 09:00 VBG pH 6.96 (7.32-7.43) L* 10/02/17 08:10 VBG pCO2 54 mmHg (40-60) 10/02/17 08:10 VBG HCO3 8.1 mmol/L 10/02/17 08:10 VBG Total CO2 13.8 mmol/L (22-28) L 10/02/17 08:10 VBG O2 Sat (Calc) 66.0 % (40-65) H 10/02/17 08:10 VBG Base Excess -20.0 mmol/L (0.0-2.0) L 10/02/17 08:10 VBG Potassium 4.9 mmol/L (3.6-5.2) 10/02/17 08:10 A-a O2 Difference 270.0 mm/Hg 10/02/17 09:00 Respiratory Index 0.7 10/02/17 09:00 Sodium 136.0 mmol/l (132-148) 10/02/17 09:00 Chloride 108.0 mmol/L (98-107) H 10/02/17 09:00 Glucose 67 mg/dl (65-105) 10/02/17 09:00 Lactate 12.9 mmol/L (0.7-2.1) H* 10/02/17 09:00 FiO2 100.0 % 10/02/17 09:00 Inspiratory BiPAP 12 10/02/17 09:00 Expiratory BiPAP 6 10/02/17 09:00 Crit Value Called To Dr mccollum 10/02/17 09:00 Crit Value Called By Jj bowman 10/02/17 09:00 Crit Value Read Back Y 10/02/17 09:00 Blood Gas Notified Time 910 10/02/17 09:00 Sodium 130 mmol/L (132-148) L 10/02/17 07:52 Potassium 5.2 mmol/L (3.6-5.2) 10/02/17 07:52 Chloride 95 mmol/L (98-107) L 10/02/17 07:52 Carbon Dioxide 9 mmol/L (22-30) L* 10/02/17 07:52 Anion Gap 30 (10-20) H 10/02/17 07:52 BUN 62 mg/dL (7-17) H 10/02/17 07:52 Creatinine 2.9 mg/dL (0.7-1.2) H 10/02/17 07:52 Est GFR ( Amer) 19 10/02/17 07:52 Est GFR (Non-Af Amer) 16 10/02/17 07:52 POC Glucose (mg/dL) 138 mg/dL (65-110) H 10/02/17 07:30 Random Glucose 168 mg/dL (65-105) H 10/02/17 07:52 Calcium 9.0 mg/dl (8.6-10.4) 10/02/17 07:52 Total Bilirubin 1.7 mg/dL (0.2-1.3) H 10/02/17 07:52 AST 1030 U/L (14-36) H 10/02/17 07:52 ALT 572 U/L (9-52) H 10/02/17 07:52 Alkaline Phosphatase 45 U/L (38-126) 10/02/17 07:52 Total Creatine Kinase 542 U/L (30-135) H 10/02/17 07:52 CK-MB (Mass) 9.85 ng/mL (0.0-3.38) H 10/02/17 07:52 Troponin I 0.2070 ng/mL (0.00-0.120) H* 10/02/17 07:52 NT-Pro-B Natriuret Pep 32778 pg/mL (0-900) H 10/02/17 07:52 Total Protein 6.5 g/dL (6.3-8.3) 10/02/17 07:52 Albumin 3.0 g/dL (3.5-5.0) L 10/02/17 07:52 Globulin 3.5 gm/dL (2.2-3.9) 10/02/17 07:52 Albumin/Globulin Ratio 0.9 (1.0-2.1) L 10/02/17 07:52 Arterial Blood Potassium 4.5 mmol/L (3.6-5.2) 10/02/17 09:00 Venous Blood Potassium 4.9 mmol/L (3.6-5.2) 10/02/17 08:10 Urine Color [place] (YELLOW) 10/02/17 07:52 Urine Clarity Hazy (Clear) 10/02/17 07:52 Urine pH 5.0 (5.0-8.0) 10/02/17 07:52 Ur Specific [place] 1.023 (1.003-1.030) 10/02/17 07:52 Urine Protein 2+ mg/dL (NEGATIVE) H 10/02/17 07:52 Urine Glucose (UA) Normal mg/dL (Normal) 10/02/17 07:52 Urine Ketones Negative mg/dL (NEGATIVE) 10/02/17 07:52 Urine Blood Negative (NEGATIVE) 10/02/17 07:52 Urine Nitrate Negative (NEGATIVE) 10/02/17 07:52 Urine Bilirubin Negative (NEGATIVE) 10/02/17 07:52 Urine Urobilinogen Normal mg/dL (0.2-1.0) 10/02/17 07:52 Ur Leukocyte Esterase Neg [place]/uL (Negative) 10/02/17 07:52 Urine WBC (Auto) 3 /hpf (0-5) 10/02/17 07:52 Urine RBC (Auto) 2 /hpf (0-3) 10/02/17 07:52 Ur Squamous Epith Cells 1 /hpf (0-5) 10/02/17 07:52 Amorphous Sediment Occ /ul (<OCC) H 10/02/17 07:52 Urine Bacteria Few (<OCC) H 10/02/17 07:52 Hyaline Casts 6-10 /lpf (0-2) H 10/02/17 07:52 - Hospital Course Hospital Course: PT WAS FOUND ON THE FLOOR WITH DISORIENTATION COVERED WITH HUMAN WASTE PT HAD GLOCOSE OF 51 PT WAS IN RENAL FAILURE AND SEVERELY ACIDOTIC BEFORE ANY FURTHER TESTS COULD BE DONE , PT CODED IN CT SCAN AND WAS UNABLE TO REVIVE PT WAS PRONOUNCED BY HOUSE PT PER CHART HAS H/O COPD/OSTEOPOROSIS Discharge Plan - Follow Up Plan Condition: CRITICAL Disposition: HOME/ ROUTINE
[2017-10-03] MEDS ORDERED: Vancomycin 1 gm/NS 200 ml 1 GM/200 ML BAG IVPB SCH (10:00)
--- NOTE | 2017-10-05 11:15 | CARD ---
APPROVED REPORT EKG Measurement Heart [id number] <Conclusion> Sinus tachycardia with occasional premature ventricular complexes Left ventricular hypertrophy with QRS widening and repolarization abnormality Abnormal ECG
== END 2017-10-02 13:33 ==
LOC: MERGE 07:16 → C.ER 07:16 → C.9I 11:01 → UNDOADMIN 11:01 → C.9I 12:08 → UNDOADMIN 12:08 → C.9I 15:42 → C.9E 15:42 → UNDODISIN 23:09
DX: A41.9 Sepsis, unspecified organism (principal); J18.9 Pneumonia, unspecified organism; N17.9 Acute kidney failure, unspecified; E86.0 Dehydration; E87.2 Acidosis; T68.XXXA Hypothermia, initial encounter; I10 Essential (primary) hypertension; M81.0 Age-related osteoporosis without current pathological fracture
CPT/HCPCS: 36600; 71045; 80053; 81001; 82803; 82948; 83880; 84484; 85025; 85610; 85730; 87040; 87086; 92950; 93005; 94660; 96361; 96365; 96375; 99291; J2543; J7040